=== PATIENT | male | born 1950 | race Caucasian/White ===

== ENCOUNTER → 2017-10-26 | Outpatient (CLI) | payer MEDICARE, BC ==
[~2017-10-26] MED LIST: ASCORBIC ACID500 M3 PO; FLOMAX0.4 MG PO; PRILOSEC40 MG PO; VITAMIN B-12500 MC2 PO
== END | disposition home or self-care (01) ==
LOC: CDC 10:17
DX: Z01.810 Encounter for preprocedural cardiovascular examination (principal); N50.9 Disorder of male genital organs, unspecified; R00.1 Bradycardia, unspecified; R94.31 Abnormal electrocardiogram [ECG] [EKG]
CPT/HCPCS: 93000